=== PATIENT | male | born 1950 | race Caucasian/White ===

== ENCOUNTER → 2018-09-29 | Outpatient (CLI) | payer OTHER ==
[~2018-09-29] MED LIST: PERFLUTREN PROTEIN-A MICROSPHR 0.22 MG/ML 3 ML VIAL. IV ONE
--- NOTE | 2018-09-29 17:14 | PCVCIMAG ---
APPROVED REPORT Study performed: 09/29/2018 15:26:02 EXAM: Comprehensive 2D, Doppler, and color-flow Echocardiogram Patient Location: Echo lab Status: routine BSA: 2.54 HR: 65 bpmBP: 150/76 mmHg Rhythm: NSR Other Information Study Quality: AdequateTechnically Limited Technically limited study due to body habitus. Risk Factors: Cardiac Risk Factors: HTN Indications Abnormal ECG Pre-Op obesity Echo Enhancing Agent Indication: Endocardial border delineation Agent(s) / Amount(s) Used: [employer] 3 cc 2D Dimensions IVSd: 14.04 (7-11mm) LVDd: 44.07 mm PWd: 13.70 (7-11mm)Ascending Ao: 33.18 (22-36mm) LVDs: 28.41 (25-40mm) Left Atrium: 34.81 (27-40mm) Aortic Root: 32.60 mm Volumes Left Atrial Volume (Systole) Single Plane 4CH: 87.24 mLSingle Plane 2CH: 57.80 mL LA ESV Index: 31.00 mL/m2 Aortic Valve AoV Peak Luis.: 1.36 m/s AO Peak Gr.: 7.38 mmHgLVOT Max P.01 mmHg LVOT Max V: 1.12 m/s Mitral Valve E/A Ratio: 1.4 MV Decel. Time: 210.79 ms MV E Max Luis.: 0.95 m/s MV A Luis.: 0.70 m/s MV PHT: 61.13 ms IVRT: 114.19 ms Pulmonary Valve PV Peak Luis.: 0.94 m/sPV Peak Gr.: 3.53 mmHg Pulmonary Vein P Vein S: 0.28 m/sP Vein A: 0.37 m/s P Vein D: 0.42 m/sP Vein A Dur.: 131.5 msec P Vein S/D Ratio: 0.67 Left Ventricle The left ventricle is normal size. There is normal LV segmental wall motion. Mild concentric left ventricular hypertrophy. Left ventricular systolic function is normal. The left ventricular ejection fraction is within the normal range. LVEF is 50-55%. The left ventricular diastolic function is normal. Right Ventricle The right ventricle is normal size. The right ventricular systolic function is normal. Atria The left atrium size is normal. The right atrium size is normal. Aortic Valve The aortic valve is normal in structure. No aortic regurgitation is present. There is no aortic valvular stenosis. Mitral Valve The mitral valve is normal in structure. Trace mitral regurgitation. No evidence of mitral valve stenosis. Tricuspid Valve The tricuspid valve is normal in structure. There is no tricuspid valve regurgitation noted. Pulmonic Valve The pulmonary valve is normal in structure. There is no pulmonic valvular regurgitation. Great Vessels The aortic root is normal in size. IVC is normal in size and collapses >50% with inspiration. Pericardium There is no pericardial effusion. There is no pleural effusion. <Conclusion> Left ventricular systolic function is normal. There is normal LV segmental wall motion. 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 Mild RV enlargement suggested LVEF is 50-55%. Normal diastolic function The aortic valve is normal in structure. No aortic regurgitation or stenosis The mitral valve is normal in structure. Trace mitral regurgitation. Pulmonary artery pressure could not be reliably ascertained There is no pericardial effusion.
== END | disposition home or self-care (01) ==
LOC: PCVCIMAG 15:59
PROVIDERS: ATTEND Internal Medicine
DX: Z01.818 Encounter for other preprocedural examination (principal); I10 Essential (primary) hypertension; R94.31 Abnormal electrocardiogram [ECG] [EKG]
CPT/HCPCS: C8929; Q9956

== ENCOUNTER → 2018-09-30 | Outpatient (CLI) | payer OTHER, MEDICARE ==
[~2018-09-30] MED LIST changes: +IV NORMAL SALINE 500ML BAG 500 ML ONE; +MIDAZOLAM HCL/PF 2 MG/2 ML VIAL. ONE; -PERFLUTREN PROTEIN-A MICROSPHR 0.22 MG/ML 3 ML VIAL. IV ONE; +fentaNYL PF VIAL 100 MCG/2 ML VIAL ONE
--- NOTE | 2018-09-30 11:53 | PCVCIMAG ---
APPROVED REPORT Study performed: 09/30/2018 10:15:12 EXAM: Transesophageal Echocardiogram with Contrast Patient Location: CV Room #: 1 Status: routine BSA: 2.54 HR: 58 bpmBP: 139/80 mmHg Rhythm: NSR Other Information Study Quality: Good Indications r/o VSD,apical clot Echo Enhancing Agent Indication: Rule out Shunt,thrombus Agent(s) / Amount(s) Used: Optison 2 cc Agitated Saline 10 cc Comments: Bubble study x 2 Contrast study x 1 Procedure After obtaining informed consent, patient underwent transesophageal echo in the [facility]. Type of Sedation : Conscious Sedation Sedation was administered by Ashley Cormier RN. Sedation start time: 10:36 Case end Time: 10:57 Sedation was achieved intravenously with: Versed (5 mg) Fentanyl (125 mcg) Transesophageal probe was inserted and advanced into esophagus without difficulty by Hung Gagnon MD. Echo enhancement indication: R/O Septal defect. R/O thrombus Echo enhancement agent administered: Optison, agitated saline The SAAD was performed without complications. Throughout the procedure, the blood pressure, pulse oximetry, cardiac rhythm, and rate were monitored. The patient tolerated the procedure without adverse effects. Recovery from conscious sedation was uneventful and vital signs were stable. Left Ventricle The left ventricle is normal size. There is normal LV segmental wall motion. There is normal left ventricular wall thickness. There is no ventricular septal defect visualized. False tendon at/near apex. The left ventricular systolic function is normal. The left ventricular ejection fraction is within the normal range. LVEF is 60-65%. This study is not technically sufficient to allow evaluation of the LV diastolic function. Right Ventricle The right ventricle is normal size. The right ventricular systolic function is normal. Atria The left atrium size is normal. Injection of bubbles documented no interatrial shunt. The right atrium size is normal. Aortic Valve The aortic valve is normal in structure. Aortic valve is trileaflet. No aortic regurgitation is present. There is no aortic valvular stenosis. Mitral Valve The mitral valve is normal in structure. Mild mitral regurgitation No evidence of mitral valve stenosis. Tricuspid Valve The tricuspid valve is normal in structure. There is no tricuspid valve regurgitation noted. Pulmonic Valve The pulmonary valve is normal in structure. There is no pulmonic valvular regurgitation. Great Vessels The aortic root is normal in size. The ascending aorta is normal in size. Aortic arch is normal in caliber. IVC is normal in size and collapses >50% with inspiration. Pericardium There is no pericardial effusion. <Conclusion> The left ventricular systolic function is normal. There is normal LV segmental wall motion. No ventricular septal defect visualized. False tendon at/near apex. LVEF 60-65%. The right ventricle is normal size. Injection of bubbles documented no interatrial shunt. The aortic valve is normal in structure. No aortic regurgitation or stenosis The mitral valve is normal in structure. Mild mitral regurgitation There is no pericardial effusion.
== END | disposition home or self-care (01) ==
LOC: PCVCINTER 08:33
PROVIDERS: ATTEND Internal Medicine
DX: I34.0 Nonrheumatic mitral (valve) insufficiency (principal); I10 Essential (primary) hypertension; E78.5 Hyperlipidemia, unspecified; I44.7 Left bundle-branch block, unspecified; G47.33 Obstructive sleep apnea (adult) (pediatric); K21.9 Gastro-esophageal reflux disease without esophagitis; E11.9 Type 2 diabetes mellitus without complications; Z98.890 Other specified postprocedural states; K08.409 Partial loss of teeth, unspecified cause, unspecified class; Z87.891 Personal history of nicotine dependence; Z72.89 Other problems related to lifestyle; Z79.899 Other long term (current) drug therapy; Z79.84 Long term (current) use of oral hypoglycemic drugs
CPT/HCPCS: 93312; 93325; 99152; J2250; J3010; J7040